=== PATIENT | female | born 1970 | race Caucasian/White ===

== ENCOUNTER 2020-07-23 15:39 | Emergency (ER) | payer OTHER ==
[~2020-07-23] VITALS: Ht 160 cm; Wt 79.4 kg
[~2020-07-23 15:39] MED LIST: VITAMINS PO
[2020-07-23 15:53] VITALS: BP 125/79
--- NOTE | 2020-07-23 15:57 | NUR ---
Patient ambulated to bed 12. RN evaluating the patient at bedside.
--- NOTE | 2020-07-23 16:04 | NUR ---
49 YO FEMALE C/O HEADACHE X 2 DAYS, ALSO C/O RIGHT ANKLE PAIN X2 WEEKS, STATES SHE TWISTED IT WHILE WEARING HIGH HEELS, NO SWELLING NOTED, CMS INTACT, AMBULATES WITH STEADY GAIT HX ANEMIA
[2020-07-23] MEDS ORDERED: KETOROLAC 30 MG/ML VIAL IM ONE (16:15)
[2020-07-23 17:19] VITALS: BP 120/80
--- NOTE | 2020-07-23 17:19 | NUR ---
Patient discharged with v/s stable. Written and verbal after care instructions given and explained. Patient alert, oriented and verbalized understanding of instructions. Ambulatory with steady gait. All questions addressed prior to discharge. ID band removed. Patient advised to follow up with PMD. Rx of Naproxen 500mg given. Work excuse provided. Patient educated on indication of medication including possible reaction and side effects. Opportunity to ask questions provided and answered.
== END 2020-07-23 17:19 | disposition home or self-care (01) ==
LOC: MED 15:39
DX: S93.401A Sprain of unspecified ligament of right ankle, initial encounter (principal); R51.9 Headache, unspecified; X58.XXXA Exposure to other specified factors, initial encounter; Y93.89 Activity, other specified; Y92.89 Other specified places as the place of occurrence of the external cause; Y99.8 Other external cause status
CPT/HCPCS: 73610; 81025; 96372; 99283; J1885; Q0092

== ENCOUNTER 2021-11-03 15:39 | Emergency (ER) | payer OTHER ==
[~2021-11-03] VITALS: Ht 156.2 cm; Wt 79.9 kg
[2021-11-03 16:04] VITALS: BP 122/63
[2021-11-03] MEDS ORDERED: ACET-10509 PO (16:33)
[2021-11-03] MEDS ORDERED: CEPH-588 PO (16:35)
--- NOTE | 2021-11-03 16:42 | NUR ---
Patient discharged with v/s stable. Written and verbal after care instructions given and explained. Patient alert, oriented and verbalized understanding of instructions. Ambulatory with steady gait. All questions addressed prior to discharge. ID band removed. Patient advised to follow up with PMD. Rx of ACETAMINOPHEN TAB, MCEPHALEXIN given. Opportunity to ask questions provided and answered.
== END 2021-11-03 16:41 | disposition home or self-care (01) ==
LOC: MED 15:39
DX: S09.90XA Unspecified injury of head, initial encounter (principal); N39.0 Urinary tract infection, site not specified; D64.9 Anemia, unspecified; Z79.899 Other long term (current) drug therapy; W22.8XXA Striking against or struck by other objects, initial encounter; Y93.89 Activity, other specified; Y92.89 Other specified places as the place of occurrence of the external cause; Y99.8 Other external cause status
CPT/HCPCS: 81002; 99283

== ENCOUNTER 2021-11-06 15:46 | Emergency (ER) | payer OTHER ==
[~2021-11-06] VITALS: Ht 165.1 cm; Wt 79.4 kg
[~2021-11-06 15:46] MED LIST changes: +ACET-10509 PO; +CEPH-588 PO
[2021-11-06 15:57] VITALS: BP 140/64
--- NOTE | 2021-11-06 19:23 | NUR ---
ERMD EXAMINING PATIENT
[2021-11-06 19:24] LABS: BASOPHILS # (AUTO) 0.1 K/uL (0.00-0.22); EOSINOPHILS # (AUTO) 0.1 K/uL (0-0.4); HEMATOCRIT 34.4 % (36-48); LYMPHOCYTES # (AUTO) 2.2 K/uL (2.5-16.5); LYMPHOCYTES % (AUTO) 32.5 % (20.5-51.1); MEAN CORPUSCULAR HEMOGLOBIN 24 pg (27-31); MEAN CORPUSCULAR HGB CONC 32 g/dL (33-37); MEAN CORPUSCULAR VOLUME 73.5 fL (80-94); MONOCYTES # (AUTO) 0.4 K/uL (0.8-1.0); MONOCYTES % (AUTO) 5.4 % (1.7-9.3); NEUTROPHILS % (AUTO) 60.1 % (42.2-75.2); PLATELET COUNT (AUTO) 303 K/uL (140-450); RED BLOOD CELL COUNT(AUTO) 4.68 MIL/uL (4.20-5.40); RED CELL DISTRIBUTION WIDTH 16.7 % (11.6-13.7); WHITE BLOOD COUNT (AUTO) 6.7 K/uL (4.8-10.8)
[2021-11-06 20:17] VITALS: BP 140/64
--- NOTE | 2021-11-06 21:58 | NUR ---
Patient discharged with v/s stable. Written and verbal after care instructions given and explained. Patient verbalized understanding. Ambulatory with steady gait. All questions addressed prior to discharge. Advised to follow up with PMD.
== END 2021-11-06 21:58 | disposition home or self-care (01) ==
LOC: MED 15:46
DX: N93.8 Other specified abnormal uterine and vaginal bleeding (principal); D64.9 Anemia, unspecified
CPT/HCPCS: 36415; 76830; 85025; 99284

== ENCOUNTER 2022-02-08 15:53 | Emergency (ER) | payer OTHER ==
[~2022-02-08] VITALS: Ht 165.1 cm; Wt 77.1 kg
[2022-02-08 16:00] VITALS: BP 112/75
--- NOTE | 2022-02-08 16:00 | NUR ---
51 Y/O F C/O NECK PAIN X1 WEEK. SWELLING TO NECK NOTED. PT STATES HAS COUGH, HEADACHE, CONGESTION AND GREEN MUCUS 10/10 PAIN. MEDHX: ANEMIA NKA
--- NOTE | 2022-02-08 16:04 | NUR ---
PT TO AWAIT IN LOBBY
--- NOTE | 2022-02-08 17:22 | NUR ---
GAL BERNABE EXAMINING PT
[2022-02-08] MEDS ORDERED: NAPR-54 PO (17:29)
[2022-02-08] MEDS ORDERED: FLONAS NS (17:29)
[2022-02-08] MEDS ORDERED: AMOX-999 PO (17:29)
[2022-02-08 17:37] VITALS: BP 112/75
--- NOTE | 2022-02-08 17:37 | NUR ---
Patient discharged with v/s stable. Written and verbal after care instructions given and explained. Patient alert, oriented and verbalized understanding of instructions. Ambulatory with steady gait. All questions addressed prior to discharge. ID band removed. Patient advised to follow up with PMD. Rx of AUGMENTIN, FLONASE NASAL, NAPROSYN given. Patient educated on indication of medication including possible reaction and side effects. Opportunity to ask questions provided and answered.
== END 2022-02-08 17:37 | disposition home or self-care (01) ==
LOC: MED 15:53
DX: J32.9 Chronic sinusitis, unspecified (principal); Z79.899 Other long term (current) drug therapy; Z79.1 Long term (current) use of non-steroidal anti-inflammatories (NSAID); Z79.2 Long term (current) use of antibiotics
CPT/HCPCS: 99283

== ENCOUNTER 2023-02-11 11:30 | Emergency (ER) | payer OTHER ==
[~2023-02-11] VITALS: Ht 165.1 cm; Wt 75.7 kg
[~2023-02-11 11:30] MED LIST changes: +AMOX-999 PO; +FLONAS NS; +NAPR-54 PO
[2023-02-11 11:35] VITALS: BP 135/83
--- NOTE | 2023-02-11 12:40 | NUR ---
LAB AT BEDSIDE
--- NOTE | 2023-02-11 12:40 | NUR ---
52 YO FEMALE BIBMargarita, PRESENTS TO THE ED STATING. SHE WAS TALKING TO ONE OF HER BOSSES, TALKING ABOUT ISSUES, DURING THE CONVERSATION PATIENT STARTED FEELING CHEST PAIN AT 1045. PMH ANEMIA.
--- NOTE | 2023-02-11 12:48 | NUR ---
xr at bedside
[2023-02-11 13:08] LABS: BASOPHILS % (AUTO) 0.9 % (0.0-2.0); EOSINOPHILS % (AUTO) 0.7 % (0.0-4.0); HEMATOCRIT 36.8 % (36-48); HEMOGLOBIN 12.1 g/dL (12.0-16.0); LYMPHOCYTES # (AUTO) 1.3 K/uL (2.5-16.5); LYMPHOCYTES % (AUTO) 27.5 % (20.5-51.1); MEAN CORPUSCULAR HEMOGLOBIN 25 pg (27-31); MEAN CORPUSCULAR HGB CONC 33 g/dL (33-37); MEAN CORPUSCULAR VOLUME 75.4 fL (80-94); MONOCYTES # (AUTO) 0.3 K/uL (0.8-1.0); MONOCYTES % (AUTO) 6.2 % (1.7-9.3); NEUTROPHILS # (AUTO) 3.1 K/uL (1.8-7.7); NEUTROPHILS % (AUTO) 64.7 % (42.2-75.2); PLATELET COUNT (AUTO) 279 K/uL (140-450); RED BLOOD CELL COUNT(AUTO) 4.88 MIL/uL (4.20-5.40); RED CELL DISTRIBUTION WIDTH 15.9 % (11.6-13.7); WHITE BLOOD COUNT (AUTO) 4.8 K/uL (4.8-10.8)
[2023-02-11 13:35] LABS: ALBUMIN 3.4 g/dL (3.4-5.0); ANION GAP 9.9 (8-16); ASPARTATE AMINOTRANSFERASE 23 U/L (15-37); CARBON DIOXIDE 29.2 mmol/L (21-32); CHLORIDE 105 mmol/L (98-107); CREATININE 0.8 mg/dL (0.6-1.3); GFR ARICAN-AMERICAN 96 mL/min (>90); GLUCOSE 99 mg/dL (74-106); LIPASE 180 U/L (73-393); POTASSIUM 4.1 mmol/L (3.5-5.1); SODIUM SERUM 140 mmol/L (136-145); TOTAL BILIRUBIN 0.2 mg/dL (0.0-1.0); UREA NITROGEN, BLOOD 17 mg/dL (7-18)
[2023-02-11 14:24] VITALS: BP 130/76
--- NOTE | 2023-02-11 14:25 | NUR ---
Patient discharged with v/s stable. Written and verbal after care instructions given and explained. Patient verbalized understanding. Ambulatory with steady gait. All questions addressed prior to discharge. Advised to follow up with PMD. given copies of labs, cxr, and ekg
== END 2023-02-11 14:24 | disposition home or self-care (01) ==
LOC: MED 11:30
DX: R07.89 Other chest pain (principal); K21.9 Gastro-esophageal reflux disease without esophagitis; M79.602 Pain in left arm; E78.5 Hyperlipidemia, unspecified; Z79.899 Other long term (current) drug therapy
CPT/HCPCS: 36415; 71045; 80053; 83690; 84484; 85025; 93005; 99285; Q0092

== ENCOUNTER 2023-06-29 14:49 | Emergency (ER) | payer OTHER ==
[~2023-06-29] VITALS: Ht 165.1 cm; Wt 74.4 kg
[2023-06-29 15:11] VITALS: BP 109/57; PULSE 78; RESP 17; TEMP 97.7; O2SAT 99
[2023-06-29 16:05] LABS: BASOPHILS % (AUTO) 1.1 % (0.0-2.0); EOSINOPHILS # (AUTO) 0.1 K/uL (0-0.4); EOSINOPHILS % (AUTO) 2.3 % (0.0-4.0); HEMATOCRIT 43.1 % (36-48); HEMOGLOBIN 14.5 g/dL (12.0-16.0); LYMPHOCYTES % (AUTO) 21.7 % (20.5-51.1); MEAN CORPUSCULAR HEMOGLOBIN 28 pg (27-31); MEAN CORPUSCULAR HGB CONC 34 g/dL (33-37); MEAN CORPUSCULAR VOLUME 83.1 fL (80-94); MONOCYTES # (AUTO) 0.3 K/uL (0.8-1.0); MONOCYTES % (AUTO) 6.9 % (1.7-9.3); PLATELET COUNT (AUTO) 189 K/uL (140-450); RED BLOOD CELL COUNT(AUTO) 5.19 MIL/uL (4.20-5.40); RED CELL DISTRIBUTION WIDTH 18.6 % (11.6-13.7); WHITE BLOOD COUNT (AUTO) 4.4 K/uL (4.8-10.8)
[2023-06-29] MEDS ORDERED: PROCHLORPERAZINE 10 MG/2 ML VIAL IVP ONE (16:15)
[2023-06-29] MEDS ORDERED: KETOROLAC 30 MG/ML VIAL IVP ONE (16:15)
[2023-06-29] MEDS ORDERED: diphenhydrAMINE 50 MG/ML VIAL IVP ONE (16:15)
[2023-06-29] MEDS ORDERED: NACL 0.9% 1,000 ML IV ONE (16:15)
[2023-06-29 16:38] LABS: ALBUMIN 3.5 g/dL (3.4-5.0); ANION GAP 14.1 (8-16); CALCIUM 9.1 mg/dL (8.5-10.1); CARBON DIOXIDE 25.8 mmol/L (21-32); CREATININE 0.8 mg/dL (0.6-1.3); POTASSIUM 3.9 mmol/L (3.5-5.1); TOTAL BILIRUBIN 0.3 mg/dL (0.0-1.0); TOTAL PROTEIN, SERUM 7.3 g/dL (6.4-8.2)
[2023-06-29 16:59] VITALS: O2SAT 99
[2023-06-29] MEDS ORDERED: IBUP-2213 PO (17:30)
[2023-06-29] MEDS ORDERED: BEN50 PO (17:30)
[2023-06-29] MEDS ORDERED: CEPH-588 PO (17:30)
[2023-06-29 17:51] VITALS: BP 109/57; PULSE 78; RESP 17; TEMP 97.7; O2SAT 99
== END 2023-06-29 17:51 | disposition home or self-care (01) ==
LOC: MED 14:49
DX: N39.0 Urinary tract infection, site not specified (principal); G43.909 Migraine, unspecified, not intractable, without status migrainosus; Z79.899 Other long term (current) drug therapy
CPT/HCPCS: 36415; 80053; 81002; 81025; 83690; 85025; 96361; 96374; 96375; 99284; J0780; J1885; J7030; J1200

== ENCOUNTER 2024-05-04 14:09 | Emergency (ER) | payer OTHER ==
[~2024-05-04] VITALS: Ht 152.4 cm; Wt 79.4 kg
[~2024-05-04 14:09] MED LIST changes: +BEN50 PO; +IBUP-2213 PO; +NAPR-337 PO; -NAPR-54 PO
[2024-05-04 14:39] VITALS: BP 113/83; PULSE 78; RESP 18; TEMP 97.5; O2SAT 99
[2024-05-04] MEDS ORDERED: ACET-10509 PO (16:12)
[2024-05-04 16:21] VITALS: BP 121/82; PULSE 88; RESP 16; TEMP 98; O2SAT 99
== END 2024-05-04 16:21 | disposition home or self-care (01) ==
LOC: MED 14:09
DX: S90.122A Contusion of left lesser toe(s) without damage to nail, initial encounter (principal); J45.909 Unspecified asthma, uncomplicated; Z79.1 Long term (current) use of non-steroidal anti-inflammatories (NSAID); Z79.2 Long term (current) use of antibiotics; Z79.899 Other long term (current) drug therapy; W22.8XXA Striking against or struck by other objects, initial encounter; Y93.89 Activity, other specified; Y92.89 Other specified places as the place of occurrence of the external cause; Y99.8 Other external cause status
CPT/HCPCS: 73660; 99283